=== PATIENT | female | born 1995 | race Two or more races ===

== ENCOUNTER 2018-10-31 20:39 | Emergency (ER) | payer OTHER ==
[~2018-10-31] VITALS: Ht 162.6 cm; Wt 55.8 kg
[2018-11-01 03:10] VITALS: BP 114/61
== END 2018-11-01 03:45 | disposition home or self-care (01) ==
LOC: ER 20:44
DX: R51 Headache (principal); M54.9 Dorsalgia, unspecified; M62.838 Other muscle spasm; V43.52XA Car driver injured in collision with other type car in traffic accident, initial encounter; Y93.89 Activity, other specified; Y99.8 Other external cause status; Y92.410 Unspecified street and highway as the place of occurrence of the external cause
CPT/HCPCS: 70450; 72125; 81025